=== PATIENT | female | born 1950 | race Caucasian/White ===

== ENCOUNTER 2024-10-17 13:09 | Inpatient (IN) | payer MEDICARE, MEDICAID, SELFPAY ==
[2024-10-17 13:10] VITALS: BP 112/90; PULSE 106; RESP 16; TEMP 36.8; O2SAT 98
[2024-10-17 13:22] LABS: Absolute Lymphocyte Count 6.19 X10^3/uL (0.83-4.51); Absolute Neutrophil Count 12.1 X10^3/uL (2.0-7.7); Basophil# 0.12 X10^3/uL; Basophil% 0.6 % (0-1); Eosinophil# 0.23 X10^3/uL; Eosinophils% 1.1 % (0-5); Hematocrit 40.9 % (37-47); Lymphocyte # 6.19 X10^3/ul (0.83-4.51); Lymphocyte % 30.7 % (19-41); Mean Corp Hgb Conc 31.8 g/dL (32-36); Mean Corpuscular Volume 91.1 fL (81-99); Mean Platelet Vol. 10.5 fl (6.2-12.0); Monocyte# 1.46 X10^3/uL; Monocyte% 7.2 % (0-10); NRBC Flagged by Analyzer 0 % (0-5); Neutrophil # 12.11 X10^3/uL (2.7-7.7); POSITIVE DIFFERENTIAL YES; POSITIVE MORPHOLOGY YES; Platelet Count 497 K/mm3 (150-450); RBC Distribution Width CV 14.2 % (11.6-14.6); RBC Distribution Width SD 47.5 fl (35.1-43.9); Red Blood Count 4.49 M/mm3 (4.2-5.4); White Blood Count 20.2 K/mm3 (4.4-11.0)
[2024-10-17 13:24] LABS: Differential Indicated SCAN CRITERIA MET
--- NOTE | 2024-10-17 13:25 | RAD_ITS ---
EXAM: XR Chest, 1 View CLINICAL INDICATION: SOB TECHNIQUE: Frontal view of the chest. COMPARISON: No relevant prior studies available. FINDINGS: LUNGS AND PLEURAL SPACES: Unremarkable. No consolidation. No pneumothorax. HEART: Unremarkable. No cardiomegaly. MEDIASTINUM: Unremarkable. Normal mediastinal contour. BONES/JOINTS: Unremarkable. No acute fracture. RAD/Chest 1 View (Portable) IMPRESSION: No acute cardiopulmonary process. Reading [facility]
[2024-10-17 13:45] LABS: Reactive Lymphocyte RARE
[2024-10-17 14:01] LABS: Anion Gap 15 (5-15); BUN 20 mg/dL (4-19); Calcium,Total 8.7 mg/dL (7.6-11.0); Carbon Dioxide 19.7 mmol/L (21.0-32.0); Chloride 101 mmol/L (98-108); Creatinine, Serum 1.18 mg/dL (0.70-1.20); EST Glomerular Filtration Rate 48 (>60); Glucose 425 mg/dL (70-99); Sodium Level 135 mmol/L (133-145)
[2024-10-17 15:05] VITALS: BP 117/84; PULSE 91; RESP 18; O2SAT 98
--- NOTE | 2024-10-17 15:18 | EX.ED.DYSGE1 ---
HPI History of Present Illness Chief Complaint: Weakness Informant: patient and family Narrative Narrative: Presents increasing weakness dyspnea today. Diagnosed with influenza 2 weeks ago at [place] ED. 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 Takes daily chemo pills. Followed by Dr. Renny Beard [facility]. States residual cough. No fever or chills. No vomiting diarrhea. Increased urine frequency due to drinking a lot of fluids. No dysuria. No chest or abdominal pain. Edition states had a subsequent PE from her surgery had a right eye stroke along with TN from her chemo pills. She is on Eliquis. She has been compliant. She ambulates with a walker at baseline. She is brought in by EMS when sister called. [facility] Medical History CAD (coronary artery disease) History of TN (myocardial infarction) Pulmonary embolus Hyperlipidemia GERD (gastroesophageal reflux disease) Hypothyroidism Depression Diabetes mellitus, type 2 Hypertension Stomach cancer Home Medications ?Medication ?Instructions ?Recorded ?Last Taken ?Type amlodipine 10 mg tablet 10 mg PO DAILY 10/17/24 Unknown History apixaban 5 mg tablet (Eliquis) 5 mg PO BID 10/17/24 Unknown History aspirin 81 mg chewable tablet 1 tab PO DAILY 10/17/24 Unknown History atorvastatin 20 mg tablet 20 mg PO DAILY 10/17/24 Unknown History dulaglutide 0.75 mg/0.5 mL 0.75 mg subcut .tue 10/17/24 Unknown History subcutaneous pen injector (Trulicity) famotidine 40 mg tablet 40 mg PO QHS 10/17/24 Unknown History ferrous sulfate 325 mg (65 mg 325 mg PO DAILY 10/17/24 Unknown History iron) tablet (FeroSul) insulin aspart See Rx Instructions subcut .COMPLEX 10/17/24 Unknown History (niacinamide)(U-100) 100 unit/mL(3 mL) subcutaneous pen (Fiasp FlexTouch U-100 Insulin) insulin glargine 100 unit/mL (3 30 unit subcut QHS 10/17/24 Unknown History mL) subcutaneous pen (Basaglar KwikPen U-100 Insulin) isosorbide mononitrate 30 mg 30 mg PO DAILY 10/17/24 Unknown History tablet,extended release 24 hr levothyroxine 100 mcg tablet 100 mcg PO DAILY 10/17/24 Unknown History metformin 1,000 mg tablet 1,000 mg PO BID 10/17/24 Unknown History metoprolol succinate 200 mg 200 mg PO DAILY 10/17/24 Unknown History tablet,extended release 24 hr montelukast 10 mg tablet 10 mg PO DAILY 10/17/24 Unknown History sacubitril 24 mg-valsartan 26 mg 1 tab PO BID 10/17/24 Unknown History tablet (Entresto) semaglutide 0.25 mg or 0.5 mg (2 0.5 mg subcut QWEEK 10/17/24 Unknown History mg/3 mL) subcutaneous pen injector (Ozempic) sertraline 100 mg tablet mg DAILY 10/17/24 Unknown History Allergy/AdvReac Type Severity Reaction Status Date / Time No Known Allergies Allergy Verified 10/17/24 13:13 Social History Smoking Status: Never smoker ROS ROS ED Constitutional Constitutional ED: Denies chills, fever(s) or sweats ENT ENT ED: Denies sore throat Cardiovascular Cardiovascular: Denies chest pain, leg edema, palpitations or racing heartbeat Respiratory/Chest Respiratory/Chest: Reports cough and dyspnea; Denies dyspnea on exertion Gastrointestinal Gastrointestinal: Denies abdominal pain, diarrhea, nausea or vomiting Genitourinary Genitourinary ED: Reports urinary frequency; Denies dysuria or hematuria Musculoskeletal Musculoskeletal: Denies back pain, extremity pain or neck pain Integumentary Denies rash or wounds Neurologic Neurologic: Reports weakness; Denies headache(s) or paresthesias EXAM Physical Exam Const Vital Signs: 10/17/24 13:10 10/17/24 15:05 10/17/24 15:11 Temperature 98.2 F Temperature Source Temporal Pulse Rate 106 H 91 Respiratory Rate 16 18 Respiratory Effort Normal Non-Labored Respiratory Pattern Normal Blood Pressure 112/90 H 117/84 H Blood Pressure Mean 97 94 Pulse Ox 98 98 Oxygen Delivery Method Room Air 10/17/24 17:00 10/17/24 19:00 Temperature Temperature Source Pulse Rate 84 98 Respiratory Rate 27 H 16 Respiratory Effort Respiratory Pattern Blood Pressure 127/100 H 117/64 Blood Pressure Mean 109 74 Pulse Ox 98 97 Oxygen Delivery Method Positive well nourished and well developed General Appearance ED: well developed and NAD HEENT HEENT Narrative: Mild dry mucosal membranes normocephalic and atraumatic Eyes General Eye ED: Yes normal appearance of both eyes Neck full ROM Chest Wall Chest: Negative for tenderness Resp normal respiratory effort and normal air movement Effort and Inspection: symmetric chest movement; Negative for respiratory distress Cardio regular rate, regular rhythm and no murmurs Peripheral Pulses: pulses 2+ throughout GI normal to inspection, nondistended, normoactive bowel sounds and non-tender Palpation: Negative for guarding or rebound tenderness present Extremity normal to inspection General Extremety ED: Negative for edema or tenderness General Extremity: Negative for edema Neuro oriented x3 and no sensory deficits noted Sensorium / Orientation: awake and alert Skin no rashes or lesions noted and no wounds MDM MDM MDM Narrative Medical decision making narrative: interventions / MDM: Differential diagnosis: Weakness, UTI, elevated troponin, abnormal EKG Diagnosis considered but do not suspect: Pulmonary embolus however chronic anticoagulation and compliant. My EKG interpretation: EKG sinus rate of 74, no ST changes. There is T wave inversions anterior lateral leads with no old for comparison. Imaging independently reviewed and interpreted by myself: 1 view chest x-ray: No acute process. Also read by radiology. External documents reviewed: N/A Test considered but not ordered:N/A ED course: Afebrile vital signs stable. Pulse ox 90 on room air. No rest or distress. Protocol chest x-ray labs were obtained. Labs had a white count of 20 hemoglobin 13 creatinine 1.18. BUN 20.Chest x-ray reviewed myself read by radiology no acute process. Patient was slight dry mucosal membranes. Normal saline 1 L fluids ordered will check urine with her urine frequency. Will reevaluate. 1605: EKG with T wave inversions lateral leads. No direct chest pains however reports weakness. Due to presuming new T wave inversions will add troponin. From her history did have a reported TN from her cancer medications. With Her glucose was 425 her gap was 15 in the normal range. She was receiving fluids. I will give her 10 units of insulin. She did not take any of her insulin at home. Admits to history of diabetes. 1809: Initial troponin was 19, repeat at 2 hours 42. No current chest pains. Urine with signs infection she has urine frequency. Culture sent. She is covered with IV Rocephin. Ordered for aspirin for cardioprotection. She is due for her nighttime Eliquis this was ordered. With elevated troponin likely type II strain with her UTI and recent influenza. I will speak with hospitalist for admission. 1830: I did speak with cardio Dr. Villalobos, agrees with current plan at this time. Recommends echo in the morning. Discussed with hospitalist Dr. Delilah Gibson for admission. Re-evaluation: stable Disposition discussed with patient/family/significant other: Patient and family Case discussed with consulting clinician: Hospitalist, cardiology This note was generated with [employer] dictation software. It may contain incorrect words, spelling, and punctuation that were not noted in checking the note before signing. Lab Data Attestation: I reviewed the patient's lab results. Labs: Laboratory Results - last 24 hr 10/17/24 10/17/24 10/17/24 13:16 15:27 16:20 WBC 20.2 H RBC 4.49 Hgb 13.0 Hct 40.9 MCV 91.1 MCH 29.0 MCHC 31.8 L RDW Std Deviation 47.5 H RDW Coeff of Brandyn 14.2 Plt Count 497 H MPV 10.5 Immature Gran % (Auto) 0.400 Neut % (Auto) 60.0 Lymph % (Auto) 30.7 Bibb % (Auto) 7.2 Eos % (Auto) 1.1 Baso % (Auto) 0.6 Absolute Neuts (auto) 12.1 H Absolute Lymphs (auto) 6.19 H Nucleated RBC % 0 Reactive Lymphocytes RARE Sodium 135 Potassium 4.0 Chloride 101 Carbon Dioxide 19.7 L Anion Gap 15 BUN 20 H Creatinine 1.18 Est GFR (MDRD) Non-Af 48 L BUN/Creatinine Ratio 17.0 Glucose 425 H Calcium 8.7 Troponin T High Sens 19 H Troponin T Hi Sens 2 Hr 42 H NT pro BNP II 6211 H Urine Color Yellow Urine Clarity Sl. Cloudy Urine pH 6.0 Ur Specific [place] 1.015 Urine Protein 30 H Urine Glucose (UA) 1000 H Urine Ketones Negative Urine Occult Blood 10 H Urine Nitrite Negative Urine Bilirubin Negative Urine Urobilinogen Normal Ur Leukocyte Esterase 100 H Urine RBC 0-5 SEEN Urine WBC 10-25 SEEN Ur Squamous Epith Cells 10-25 SEEN Urine Bacteria 4+ Hyaline Casts 0-5 SEEN Urine Mucus 0 SEEN Radiography Diagnostic Testing: Clinical Impression(s) from Imaging Studies Chest X-Ray 10/17/24 13:25 IMPRESSION: No acute cardiopulmonary process. Reading [facility] Discharge Plan Dx/Rx/DC Orders Clinical Impression: Acute UTI, Weakness, Elevated troponin, Abnormal EKG Disposition Disposition: Acute Care Hospital [facility] Discharge Date/Time: 10/17/24 19:34
--- NOTE | 2024-10-17 15:21 | EKG12_ITS ---
Test Reason : ARRYTH Blood Pressure : */* mmHG Vent. Rate : 74 BPM Atrial Rate : 74 BPM P-R Int : 172 ms QRS Dur : 88 ms QT Int : 392 ms P-R-T Axes : 60 21 91 degrees QTcB Int : 435 ms Normal sinus rhythm T wave abnormality, consider anterolateral ischemia Abnormal ECG Confirmed by LC AGUIRRE, NIKUNJ ([id number]), food editor BHAVANA DAVENPORT ([id number]) on 10/22/2024 11:00:05 AM Referred By: REYES Confirmed By: NIKUNJ PLATT MD
[2024-10-17 15:36] LABS: Mucous, Urine 0 SEEN /hpf (<or=2+)
[2024-10-17 15:38] LABS: Color, Urine Yellow (Yellow); Glucose, Dipstick 1000 mg/dl (Normal); Ketone-Dipstick Negative (Negative); Leukocyte Esterase-Dipstick 100 /ul (Negative); Nitrite-Dipstick Negative (Negative); Occult Blood-Urine 10 /ul (Negative); Protein-Dipstick 30 mg/dl (Negative); Specific Gravity, Urine 1.015 (1.002-1.030); Urine Bilirubin Dipstick Negative (Negative); Urine Clarity Sl. Cloudy (Clear); Urine Urobilinogen Normal (Normal)
[2024-10-17] MEDS: 0.9% Normal Saline (1000mL) 1,000 ML 999 ML IV (15:44)
[2024-10-17 16:29] LABS: White Blood Cells 10-25 SEEN /hpf (0-5)
[2024-10-17 16:30] LABS: Squamous Epithelial Cells - UA 10-25 SEEN /hpf (5-10)
[2024-10-17 16:32] LABS: Bacteria 4+ /hpf (None Seen); Hyaline Cast 0-5 SEEN /lpf (0-5); Red Blood Cells-Urine 0-5 SEEN /hpf (0-5)
[2024-10-17] MEDS: Insulin Lispro 100 UNIT/ML INSULN.PEN 10 UNIT SC (16:33)
[2024-10-17 17:00] VITALS: BP 127/100; PULSE 84; RESP 27; O2SAT 98
[2024-10-17 17:07] LABS: Troponin T High Sens 2 HR 42 ng/L (<=14)
[2024-10-17] MEDS: Aspirin 81 MG TAB.CHEW 324 MG PO (18:17)
[2024-10-17] MEDS: Ceftriaxone 1 GM/50 ML BAG IV (18:30)
[2024-10-17 18:53] LABS: Pro- Brain NATRIURETIC PEPTIDE 6211 pg/mL (<=900)
[2024-10-17 19:00] VITALS: BP 117/64; PULSE 98; RESP 16; O2SAT 97
--- NOTE | 2024-10-17 19:00 | PCM.HP.STD ---
HPI - General General Date of Admission: 10/17/24 Date of Service: 10/17/24 Chief Complaint: Generalized weakness HPI Narrative SUNITHA HERBERT, is a 74 F who presented to the emergency department [facility] on 10/17/2024 with a chief complaint of weakness. She reports her weakness started about 2 to 3 weeks ago. She was at [place] emergency department a while ago and was diagnosed with influenza A. She has been persistently weak and has had an ongoing non-productive cough. She denies CP, SOB at rest but has mild with exertion sometimes. She denies fever or chills. She has had some urinary frequency and urgency but no dysuria. She is on Eliquis at baseline for history of PE. She does have history of a GIST tumor that was diagnosed 6 years ago and gets treatment ongoing from [facility]. Vital signs on presentation showed a temperature of 98.2, heart rate 106, respiratory rate 16, blood pressure is 112/98 and pulse ox is 98% on room air. CBC shows a leukocytosis white count of 20.2, thrombocytosis with a platelet count of 197,000 but no left shift is present. Chemistry panel is overtly unremarkable other than she has a glucose of 425. EKG was done and showed T wave inversions with no previous EKG for comparison. Given this and her history troponins were cycled with her initial troponin at 19 and her 2-hour troponin at 42. BNP was obtained and found to be 6211. UA is consistent with infection having glucose, proteins, occult blood, leuk esterase, white cells, and 4+ bacteria. Chest x-ray was unremarkable for acute findings The case was discussed with Dr. Villalobos by the emergency department physician and the significance of her troponin elevation is unclear with her not having any cardiac type symptoms overall. He recommended continuing her Eliquis and obtaining echocardiogram and stress test. [facility] Medical History CAD (coronary artery disease) History of IL (myocardial infarction) Pulmonary embolus Hyperlipidemia GERD (gastroesophageal reflux disease) Hypothyroidism Depression Diabetes mellitus, type 2 Hypertension Stomach cancer Home Medications ?Medication ?Instructions ?Recorded ?Last Taken ?Type amlodipine 10 mg tablet 10 mg PO DAILY 10/17/24 Unknown History apixaban 5 mg tablet (Eliquis) 5 mg PO BID 10/17/24 Unknown History aspirin 81 mg chewable tablet 1 tab PO DAILY 10/17/24 Unknown History atorvastatin 20 mg tablet 20 mg PO DAILY 10/17/24 Unknown History dulaglutide 0.75 mg/0.5 mL 0.75 mg subcut .tue 10/17/24 Unknown History subcutaneous pen injector (Trulicity) famotidine 40 mg tablet 40 mg PO QHS 10/17/24 Unknown History ferrous sulfate 325 mg (65 mg 325 mg PO DAILY 10/17/24 Unknown History iron) tablet (FeroSul) insulin aspart See Rx Instructions subcut .COMPLEX 10/17/24 Unknown History (niacinamide)(U-100) 100 unit/mL(3 mL) subcutaneous pen (Fiasp FlexTouch U-100 Insulin) insulin glargine 100 unit/mL (3 30 unit subcut QHS 10/17/24 Unknown History mL) subcutaneous pen (Basaglar KwikPen U-100 Insulin) isosorbide mononitrate 30 mg 30 mg PO DAILY 10/17/24 Unknown History tablet,extended release 24 hr levothyroxine 100 mcg tablet 100 mcg PO DAILY 10/17/24 Unknown History metformin 1,000 mg tablet 1,000 mg PO BID 10/17/24 Unknown History metoprolol succinate 200 mg 200 mg PO DAILY 10/17/24 Unknown History tablet,extended release 24 hr montelukast 10 mg tablet 10 mg PO DAILY 10/17/24 Unknown History sacubitril 24 mg-valsartan 26 mg 1 tab PO BID 10/17/24 Unknown History tablet (Entresto) semaglutide 0.25 mg or 0.5 mg (2 0.5 mg subcut QWEEK 10/17/24 Unknown History mg/3 mL) subcutaneous pen injector (Ozempic) sertraline 100 mg tablet mg DAILY 10/17/24 Unknown History Allergy/AdvReac Type Severity Reaction Status Date / Time No Known Allergies Allergy Verified 10/17/24 13:13 Social History Smoking Status: Never smoker ROS Constitutional Constitutional: Reports fatigue and weakness; Denies anorexia, change in weight, chills, fever(s), malaise, night sweats or other Eyes Eyes: Denies blurry vision, change in eye color, change in vision, discharge from eye(s), double vision, erythema, eye pain, loss of vision or other ENT HEENT: Denies abnormal hearing, dysphagia, ear pain, epistaxis, headache(s), hearing loss, nasal congestion, nasal discharge, post nasal drip, sinus pressure, sore throat or other Cardiovascular Cardiovascular: Denies chest pain, claudication, dyspnea on exertion, edema, lightheadedness, orthopnea, palpitations, paroxysmal nocturnal dyspnea, rapid heart rate, syncope or other Respiratory/Chest Respiratory/Chest: Reports cough and shortness of breath with exertion; Denies dyspnea, excessive phlegm production, hemoptysis, productive cough, shortness of breath at rest, wheezing or other Gastrointestinal Gastrointestinal: Denies abdominal pain, coffee ground emesis, constipation, diarrhea, dyspepsia, hematemesis, hematochezia, loose stools, melena, nausea, vomiting or other Genitourinary Genitourinary: Reports urinary frequency and urinary urgency; Denies burning urination, difficulty urinating, dysuria, hematuria, nocturia, urinary hesitancy, urinary incontinence or other Musculoskeletal Musculoskeletal: Denies arthralgias, back pain, joint pain, joint stiffness, joint swelling, myalgias, neck pain or other Neurologic Neurologic: Denies abnormal gait, abnormal speech, confusion, disequilibrium, dizziness, focal weakness, headache(s), numbness, paresthesias, seizure-like activity, seizures, syncope, tingling, tremor(s) or other Psychiatric Psychiatric: Denies anxiety, depression, homicidal ideation, suicidal ideation or other Endocrine Endocrinology: Denies change in body appearance, cold intolerance, excessive sweating, heat intolerance, polydipsia, polyuria or other Hematologic/Lymphatic Hematologic/Lymphatic: Denies anemia, easy bleeding, easy bruising, lymphadenopathy or other Allergic/Immunologic Allergic/Immunologic: Denies rhinitis, hives, eczemia, asthma or other Vital Signs Vital Signs Vital Signs: 10/17/24 13:10 10/17/24 15:05 10/17/24 15:11 Temperature 98.2 F Temperature Source Temporal Pulse Rate 106 H 91 Respiratory Rate 16 18 Respiratory Effort Normal Non-Labored Respiratory Pattern Normal Blood Pressure 112/90 H 117/84 H Blood Pressure Mean 97 94 Pulse Ox 98 98 Oxygen Delivery Method Room Air 10/17/24 17:00 Temperature Temperature Source Pulse Rate 84 Respiratory Rate 27 H Respiratory Effort Respiratory Pattern Blood Pressure 127/100 H Blood Pressure Mean 109 Pulse Ox 98 Oxygen Delivery Method Physical Exam Const alert, oriented x3, no apparent distress, average body habitus and well nourished; Negative for healthy appearing Constitutional Narrative: Older, white female, sitting up in bed, appears comfortable, nontoxic, at bedside, does appear as if she is not feeling well however General Appearance: cooperative HEENT normocephalic, head/scalp atraumatic, hearing grossly normal bilaterally and moist oral mucous membranes HEENT Narrative: Mallampati 2, no thrush Eyes EOMs intact bilaterally and conjunctivae normal Eyes Narrative: No scleral icterus Neck supple Neck Narrative: Trachea midline, no thyroid enlargement Resp normal respiratory effort, no retractions, no use of accessory muscles and clear to auscultation bilaterally Resp Narrative: Intermittent cough, no tactile fremitus, cough is nonproductive and dry sounding Auscultation: Negative for rales, rhonchi or wheezes Cardio regular rate, regular rhythm, S1 normal heart sound, S2 normal heart sound, no murmurs, no rub, no gallops and no clicks GI normal to inspection, nondistended, normoactive bowel sounds, soft to palpation and non-tender Extremity no clubbing, cyanosis or edema Extremity Narrative: 2+ pedal and radial pulses Neuro oriented x3, moves all extremities and no focal motor deficits Speech: speech normal Psych affect normal Psych Narrative: Extremely pleasant, interacts appropriately Results Lab / Micro Data 10/17/24 13:16 10/17/24 13:16 Labs: Laboratory Results - last 24 hr 10/17/24 13:16: WBC 20.2 H, RBC 4.49, Hgb 13.0, Hct 40.9, MCV 91.1, MCH 29.0, MCHC 31.8 L, RDW Std Deviation 47.5 H, RDW Coeff of Brandyn 14.2, Plt Count 497 H, MPV 10.5, Immature Gran % (Auto) 0.400, Neut % (Auto) 60.0, Lymph % (Auto) 30.7, Harris % (Auto) 7.2, Eos % (Auto) 1.1, Baso % (Auto) 0.6, Absolute Neuts (auto) 12.1 H, Absolute Lymphs (auto) 6.19 H, Nucleated RBC % 0, Reactive Lymphocytes RARE, Sodium 135, Potassium 4.0, Chloride 101, Carbon Dioxide 19.7 L, Anion Gap 15, BUN 20 H, Creatinine 1.18, Est GFR (MDRD) Non-Af 48 L, BUN/Creatinine Ratio 17.0, Glucose 425 H, Calcium 8.7, Troponin T High Sens 19 H, NT pro BNP II 6211 H 10/17/24 15:27: Urine Color Yellow, Urine Clarity Sl. Cloudy, Urine pH 6.0, Ur Specific [place] 1.015, Urine Protein 30 H, Urine Glucose (UA) 1000 H, Urine Ketones Negative, Urine Occult Blood 10 H, Urine Nitrite Negative, Urine Bilirubin Negative, Urine Urobilinogen Normal, Ur Leukocyte Esterase 100 H, Urine RBC 0-5 SEEN, Urine WBC 10-25 SEEN, Ur Squamous Epith Cells 10-25 SEEN, Urine Bacteria 4+, Hyaline Casts 0-5 SEEN, Urine Mucus 0 SEEN 10/17/24 16:20: Troponin T Hi Sens 2 Hr 42 H Imaging Radiology Impression Chest X-Ray 10/17/24 13:25 IMPRESSION: No acute cardiopulmonary process. 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, malignant: (7) Debility: (8) Leukocytosis: (9) Thrombocytosis: (10) Hyperglycemia due to diabetes mellitus: (11) Elevated brain natriuretic peptide (BNP) level: PLAN: Plan Abnormal UA -Consistent with urinary tract infection -Cultures pending -Ceftriaxone 1 g daily Leukocytosis/thrombocytosis -Patient with several nonspecific symptoms -Add on blood cultures -Urine cultures pending already -Continue ceftriaxone for now as UA looks suspicious for infection -Patient with cough and is post influenza however lung exam is clear, she has had no fever, no sputum production so my suspicion is low for pneumonia Troponin elevation/abnormal EKG -Significance unclear -No baseline EKG for comparison and patient does have previously known CAD -patient without chest pain -Case was discussed with cardiology by the emergency department and they recommended admission with noninvasive imaging and trend -Did not want a heparin drip -Continue home medications -Check lipid panel -Check echocardiogram next-check a.m. stress test if troponins do not serially trend up -Continue to follow Hyperglycemia with history of DM-2 -Patient states she has not taken her medications today so this is likely contributing -Also concerned that acute infection is contributing -Will restart home regimen -SSI as ordered -Cardiac/carb controlled diet Cough -Antitussives available -Cough is nonproductive and chest x-ray is unremarkable -Was recently diagnosed with influenza A so is recovering for this and I suspect this is postinfectious cough Elevated BNP -Patient without any hypoxemia or shortness of breath -no swelling -Will give Lasix x 1 dose -Echocardiogram as noted above Generalized weakness/debility -Patient ambulates with a walker -A bit weaker lately -PT/OT consultation -Case management/social work consultation for assistance with discharge planning History of PE -Continue home apixaban DM-2 -Hold home Trulicity -Hold home oral agents -Continue home insulin -SSI as ordered -Cardiac/carb controlled diet CAD/essential HTN/hyperlipidemia/history of stroke -Continue aspirin -Continue atorvastatin -Continue isosorbide mononitrate -Continue metoprolol -Continue Entresto -Request records -Stroke affected vision in right eye GIST tumor -Diagnosed 6 years ago with partial gastric and splenic resection -Currently on oral chemo -Follows with Dr. Renyn Beard--> [facility] Main campus -Ongoing outpatient follow-up as previously instructed Seasonal allergies -Continue home Singulair Hypothyroidism -Continue levothyroxine GERD -Continue home famotidine DVT prophylaxis -continue home Eliquis CODE STATUS -Full code per discussion with patient has been on admission Charges/Coding Visit Charges Inpatient E&M: 51092 Init Hosp L2
[2024-10-17 19:29] VITALS: BP 117/64; PULSE 90; RESP 18; TEMP 36.8; O2SAT 97
[2024-10-17] MEDS: APIXABAN 5 MG TABLET PO ×2 (19:31→21:04)
--- NOTE | 2024-10-17 20:04 | ECHOCS_ITS ---
Reason For Study Reason For Study: Dyspnea/SOB Procedure This was a 2D Doppler, Color Flow transthoracic echocardiogram. The study was technically difficult. Contrast injection was performed. Best images taken with patient supine. Exam performed in department. Left Ventricle Normal LV size. The estimated ejection fraction is 35-40 %. Gallina : Akinetic. Right Ventricle Normal RV size. Normal systolic function. Atria The left and right atria are normal. No doppler evidence for ASD. Mitral Valve There is no mitral valve stenosis. No mitral valve insufficiency. Tricuspid Valve There is no tricuspid stenosis. Trivial tricuspid valve insufficiency. Unable to estimate RV systolic pressure due to insufficient tricuspid regurgitant envelope. Aortic Valve Trisinus/trileaflet aortic valve. There is no aortic stenosis. No aortic valve insufficiency. Pulmonic Valve There is no pulmonic valvular stenosis. No pulmonic valve insufficiency. Great Vessels Normal sized aortic root. Pericardium/Pleural No pericardial effusion. Medication Diluted definity 2ml given slow IV push to enhance endocardial definition. MMode/2D Measurements & Calculations LVIDd: 3.6 cm IVSd: 1.9 cm Ao root diam: 3.6 cm LVIDs: 2.1 cm LVPWd: 1.3 cm RVDd: 3.1 cm FS: 42.7 % LAV(MOD-bp): 32.5 ml LVAd ap4: 34.7 cm2 SV(MOD-sp4): 41.6 ml LAV(MOD-bp) Indexed: 17.3 ml/m2 LVLd ap4: 8.9 cm SI(MOD-sp4): 22.2 ml/m2 LAV(MOD-sp2): 33.2 ml EDV(MOD-sp4): 105.7 ml LAV(MOD-sp4): 25.8 ml EDV(sp4-el): 114.4 ml LVAs ap4: 25.7 cm2 LVLs ap4: 8.1 cm ESV(MOD-sp4): 64.1 ml ESV(sp4-el): 68.6 ml EF(MOD-sp4): 39.3 % EF(sp4-el): 40.0 % SV(sp4-el): 45.8 ml LA A4 area: 13.9 cm2 LA dimension(2D): 2.7 cm RA A4 area: 8.9 cm2 TAPSE: 1.4 cm Time Measurements MV dec time: 0.12 sec Doppler Measurements & Calculations MV E max joseph: 46.1 cm/sec Lat Peak E' Joseph: 3.9 cm/sec Med Peak E' Joseph: 3.5 cm/sec MV A max joseph: 116.3 cm/sec E/E' lat: 11.9 E/E' med: 13.0 MV E/A: 0.40 MV V2 max: 138.8 cm/sec MV P1/2t max joseph: 77.1 cm/sec Ao V2 max: 126.0 cm/sec MV max P.7 mmHg MV P1/2t: 51.5 msec Ao max P.4 mmHg MV V2 mean: 80.2 cm/sec MV dec slope: 438.2 cm/sec2 Ao V2 mean: 93.6 cm/sec MV mean P.1 mmHg MVA(P1/2t): 4.3 cm2 Ao mean P.0 mmHg MV V2 VTI: 19.5 cm Ao V2 VTI: 24.2 cm AV (velocity ratio): 0.91 LV V1 max: 125.9 cm/sec PA V2 max: 121.8 cm/sec TR max joseph: 237.1 cm/sec LV V1 max P.4 mmHg TR max P.5 mmHg LV V1 mean P.3 mmHg LV V1 mean: 83.4 cm/sec LV V1 VTI: 22.0 cm ECHO/Echo Complete W/ Contrast Interpretation Summary The estimated ejection fraction is 35-40 %. Gallina : Akinetic. Ordering Physician: Do Gibson Performed By: Hayes Blanton RCS
[2024-10-17 20:09] VITALS: BMI 26.3
[2024-10-17 20:15] VITALS: BP 92/63; PULSE 72; RESP 16; TEMP 36.6; O2SAT 99
--- NOTE | 2024-10-17 20:54 | EKG12_ITS ---
Test Reason : STRESS NIKOLE Blood Pressure : */* mmHG Vent. Rate : 82 BPM Atrial Rate : 82 BPM P-R Int : 170 ms QRS Dur : 88 ms QT Int : 354 ms P-R-T Axes : 72 39 90 degrees QTcB Int : 413 ms Sinus rhythm with occasional Premature ventricular complexes Nonspecific T wave abnormality Abnormal ECG When compared with ECG of 17-Oct-2024 21:28, MANUAL COMPARISON REQUIRED DATA IS UNCONFIRMED Confirmed by LC AGUIRRE, NIKUNJ ([id number]), graphics editor BHAVANA DAVENPORT ([id number]) on 10/22/2024 11:38:39 AM Referred By: SHELLEY Confirmed By: NIKUNJ PLATT MD
[2024-10-17] MEDS: Furosemide 40 MG/4 ML Vial IV (21:03)
[2024-10-17] MEDS: Famotidine 20 MG Tablet 40 MG PO (21:04)
[2024-10-17] MEDS: SACUBITRIL/VALSARTAN 24/26 MG TABLET 1 EACH PO (21:04)
[2024-10-17] MEDS: Atorvastatin Calcium 20 MG Tablet PO (21:04)
[2024-10-17 22:17] LABS: Troponin T High Sens 4 HR 58 ng/L (<=14)
[2024-10-17 23:15] LABS: Bedside Glucose 71 mg/dL (74-106)
[2024-10-18 02:15] VITALS: BP 121/59; PULSE 79; RESP 16; TEMP 36.5; O2SAT 100
[2024-10-18 05:19] LABS: Absolute Lymphocyte Count 3.78 X10^3/uL (0.83-4.51); Basophil# 0.14 X10^3/uL; Basophil% 0.9 % (0-1); Eosinophil# 0.43 X10^3/uL; Eosinophils% 2.9 % (0-5); Hematocrit 43.4 % (37-47); Hemoglobin 13.9 g/dL (12.0-15.0); Lymphocyte # 3.78 X10^3/ul (0.83-4.51); Lymphocyte % 25.2 % (19-41); Mean Corpuscular Hgb 28.7 pg (27.0-32.0); Mean Corpuscular Volume 89.7 fL (81-99); Mean Platelet Vol. 10.7 fl (6.2-12.0); Monocyte# 1.53 X10^3/uL; Monocyte% 10.2 % (0-10); NRBC Flagged by Analyzer 0 % (0-5); Neutrophil # 9.04 X10^3/uL (2.7-7.7); Neutrophil % 60.4 % (47-70); POSITIVE DIFFERENTIAL YES; Platelet Count 508 K/mm3 (150-450); RBC Distribution Width CV 14.3 % (11.6-14.6); RBC Distribution Width SD 46.4 fl (35.1-43.9); Red Blood Count 4.84 M/mm3 (4.2-5.4)
[2024-10-18 05:22] LABS: Differential Indicated SCAN CRITERIA MET
--- NOTE | 2024-10-18 05:55 | EKG12_ITS ---
Test Reason : ADM EKG Blood Pressure : */* mmHG Vent. Rate : 78 BPM Atrial Rate : 78 BPM P-R Int : 176 ms QRS Dur : 84 ms QT Int : 368 ms P-R-T Axes : 61 31 90 degrees QTcB Int : 419 ms Normal sinus rhythm Nonspecific T wave abnormality Abnormal ECG When compared with ECG of 17-Oct-2024 15:47, MANUAL COMPARISON REQUIRED DATA IS UNCONFIRMED Confirmed by LC AGUIRRE, NIKUNJ ([id number]), business editor BHAVANA DAVENPORT ([id number]) on 10/22/2024 11:40:52 AM Referred By: SHELLEY Confirmed By: NIKUNJ PLATT MD
[2024-10-18] MEDS: Insulin Lispro 100 UNIT/ML INSULN.PEN SC (05:57)
[2024-10-18 05:59] LABS: ALB/GLOB Ratio 1.1 RATIO (0.9-2.4); AST(SGOT) 17 U/L (<=31); Alanine Aminotransfer ALT/SGPT 9 U/L (<=34); Albumin, Serum 3.4 g/dL (3.4-4.8); Alkaline Phosphatase 122 U/L (35-104); Anion Gap 15 (5-15); BUN 15 mg/dL (4-19); BUN/Creat Ratio 16.4 RATIO (10-20); Calcium,Total 8.9 mg/dL (7.6-11.0); Carbon Dioxide 23.6 mmol/L (21.0-32.0); Chloride 104 mmol/L (98-108); Creatinine, Serum 0.93 mg/dL (0.70-1.20); EST Glomerular Filtration Rate 64 (>60); Globulin 3.2 g/dL (2.2-4.2); Glucose 157 mg/dL (70-99); Magnesium 1.8 mg/dL (1.5-2.2); Phosphorus 3.1 mg/dL (2.7-4.5); Potassium 3.6 mmol/L (3.3-5.1); Protein, Total 6.5 g/dL (5.9-8.4); Sodium Level 143 mmol/L (133-145); Total Bilirubin 0.39 mg/dL (0.00-1.30)
[2024-10-18 06:00] VITALS: BP 104/66; PULSE 75; RESP 16; TEMP 36.4; O2SAT 96
[2024-10-18 06:31] LABS: Differential Comment SCANNED; Pathologist Review May foll; Platelet Estimate MOD INC (ADEQ); Red Cell Morphology NORM C+C NORMAL (NORM C&C)
[2024-10-18 06:36] LABS: Bedside Glucose 175 mg/dL (74-106)
[2024-10-18 06:42] LABS: Cholesterol 116 mg/dL (<=200); High Density Lipoprotein 46 mg/dL; Low Density Lipoprotein Calc. 44 mg/dL; Triglycerides 129 mg/dL; Very Low Density Lipoprotein 26 mg/dL (5-40); cholesterol:hdl ratio screen 2.52
[2024-10-18 07:49] VITALS: O2SAT 95
[2024-10-18 10:22] VITALS: BP 99/64; PULSE 95; RESP 18; TEMP 36.3; O2SAT 99
[2024-10-18] MEDS: Aspirin 81 MG TAB.CHEW PO (10:44)
[2024-10-18 11:11] LABS: Bedside Glucose 138 mg/dL (74-106)
--- NOTE | 2024-10-18 11:47 | STRESSREP_ITS ---
Stress Test Report Date: [10/18/2024] Procedure: Pharmacologic stress nuclear imaging study Indications: Elevated troponin Consent: Per the patient Procedure: The patient underwent pharmacologic (Regadenoson) evaluation with a peak heart rate of 122 beats per minute (83%predicted maximal heart rate) and a peak blood pressure of 120/72 mmHg. The baseline ECG demonstrated normal sinus rhythm, possible old anterior [place], nonspecific ST-T changes. EKG during lexiscan infusion revealed no significant ischemic changes. EKG post infusion revealed no significant ischemic changes [There were no cardiac dysrhythmias pretest, during pharmacologic infusion, or recovery]. [There was no complaint of chest discomfort during pharmacologic infusion or re covery]. The examination was discontinued secondary to completion of protocol. Impression: 1. Lexiscan stress test test is negative for Lexiscan infusion induced EKG changes of ischemia. 2. Lexiscan stress test test is negative for Lexiscan infusion induced chest pain. 3. Results of the nuclear portion of the test is as below Myocardial perfusion imaging study: Technique: The patient was injected with 11.2 millicuries of technetium 99m Cardiolite and subsequently rest SPECT Cardiolite nuclear imaging was obtained in the horizontal long, vertical long, and short axis views. The patient underwent pharmacologic [Regadenoson 0.4mg] evaluation. Please see above for details. The patient was injected with [] millicuries of technetium 99m Cardiolite and subsequently stress SPECT Cardiolite nuclear imaging was obtained in the horizontal long, vertical long, and short axis views. A gated Cardiolite study at peak stress was obtained. Interpretation: Rest and stress SPECT Cardiolite nuclear imaging status post realignment, normalization, and attenuation correction demonstrate absent radioisotope uptake in the apex on both the rest and stress images. There is no significant reversibility suggestive of significant ischemia. Unable to estimate EF accurately as the apex is not well-visualized and akinetic on echo. Impression: 1. There is no evidence of significant ischemia. Possible prior apical myocardial infarction. 2. Estimated ejection fraction cannot be assessed. Please refer to the echo done today for EF assessment This note was generated with [employer] software. It may contain incorrect words, spelling, and punctuation that were not noted in checking the note before signing.
--- NOTE | 2024-10-18 12:36 | DCINST_ITS ---
Discharge Instructions Diet Discharge Diet: Low fat / Low cholesterol and Carb Control Diet DC O2, CPAP, BIPAP needs Home O2 Discharge instructions: No Dressing / Incision Discharge Activity: Return to Normal Activity Dressing / Incision Call your doctor if you observe: Fever of 101 or Higher, Shortness of breath, Dizziness, Fainting spells, Swelling in the ankles, Chest pain and Increased palpitations (irregular heartbeat) Follow Up Care Test Results: Test results from this visit will be discussed in further detail at your follow- up appointment, if applicable. Discharge Plan Admission Admit Date/Time: 10/17/24 19:07 Attending Provider: Dave Mondragon Primary Care Provider: rBittany Chapman Consulting Providers: Do Gibson Discharge Orders/Prescriptions Prescriptions: New cefdinir 300 mg capsule 300 mg PO BID 4 Days Qty: 8 0RF Continued atorvastatin 20 mg tablet 20 mg PO DAILY amlodipine 10 mg tablet 10 mg PO DAILY aspirin 81 mg tablet,chewable 1 tab PO DAILY Eliquis 5 mg tablet 5 mg PO BID insulin glargine [Basaglar KwikPen U-100 Insulin] 100 unit/mL (3 mL) insulin pen 30 unit subcut QHS Trulicity 0.75 mg/0.5 mL pen injector 0.75 mg subcut .tue Fiasp FlexTouch U-100 Insulin 100 unit/mL (3 mL) insulin pen See Rx Instructions SUBCUT .COMPLEX Patient Comments: BEFORE MEALS AND BEDTIME INJECT 2 UNITS IF 151-200, 4 UNITS IF 201-250, 6 UNITS IF 251-300, 8 UNITS IF 301-350, 10 UNITS IF 351-400. CALL MD IF GREATER THAN 400 OR 2 CONSECUTIVE VALUES ARE GREATER IN PREVIOUS 24 HOURS Rx Instructions: subcutaneously; BEFORE MEALS AND BEDTIME INJECT 2 UNITS IF 151-200, 4 UNITS IF 201-250, 6 UNITS IF 251-300, 8 UNITS IF 301-350, 10 UNITS IF 351-400. CALL MD IF GREATER THAN 400 OR 2 CONSECUTIVE VALUES ARE GREATER IN PREVIOUS 24 HOURS metformin 1,000 mg tablet 1,000 mg PO BID famotidine 40 mg tablet 40 mg PO QHS ferrous sulfate [FeroSul] 325 mg (65 mg iron) tablet 325 mg PO DAILY metoprolol succinate 200 mg tablet extended release 24 hr 200 mg PO DAILY isosorbide mononitrate 30 mg tablet extended release 24 hr 30 mg PO DAILY levothyroxine 100 mcg tablet 100 mcg PO DAILY montelukast 10 mg tablet 10 mg PO DAILY sertraline 100 mg tablet DAILY sacubitril-valsartan [Entresto] 24-26 mg tablet 1 tab PO BID Ozempic 0.25 mg or 0.5 mg (2 mg/3 mL) pen injector 0.5 mg subcut QWEEK Referrals / Follow Up: Brittany Chapman MD [Primary Care Provider] - Within 1 Week Disposition Disposition (needs filled in before D/C Order can be placed): Home, Self Care
[2024-10-18] MEDS: Ferrous Sulfate 325 MG Tablet PO (12:55)
[2024-10-18] MEDS: APIXABAN 5 MG TABLET PO (12:55)
[2024-10-18] MEDS: guaiFENesin 10 ML UDC (200MG/10ML) 20 ML PO (13:03)
[2024-10-18] MEDS: Ceftriaxone 1 GM/50 ML BAG IV (13:04)
--- NOTE | 2024-10-18 13:15 | CASEMGMT ---
RN ONEAL PAINT LINE OPERATOR ONEAL?to room to meet with patient for initial transition planning/care coordination assessment. RN ONEAL?introduced self and role at [facility]. Pt voices understanding and consents to assessment?at this time. Pt resting in bed in no distress at this time. 2 sisters @ bedside and pt agreeable to them being present during assessment. Pt is A/O at this time and answers all questions appropriately. Care providers, pharmacy, and demographics verified/updated at this time. Strata:?2 PCP: Dr Chapman. Pt aware she is to f/u with her in a week. Specialists: Pt sees a forensic computer examiner, oncologist, and neurologist all @ [facility]. She does not remember there names. Preferred Pharmacy: [facility]. Pt is aware Rx has been sent there today. She states she is able to pick this up today. Insurance: [facility] Prescription Benefit: yes LNOK: son, Marlon. Ex-, Martin Living Arrangements: Lives w/ex-, Martin, in one-story nursing home park w/4-5 steps to enter and states she does okay with the steps. She states she is independent w/ADL's and IADL's. Transportation:?Pt states she does not drive. Her ex- provides transportation. DME: States has the following DME: functioning glucometer w/supplies, shower chair, pulse ox, rollator, BP machine, pulse ox. She would like info on medical alert, given at this time. Pt states no need for further DME at this time. HHC/SNF: Pt has been to [facility] in the past, about 5-6 yrs ago. No hx of HHC. She has went to [facility] for OP therapy. Pt declines wanting HHC or OP therapy. She states the weakness she was having on admission has resolved and she is back to her baseline. 6 cl: 23. Pt wishes to return home and states has no concerns with going home. She is aware a discharge order is in and states no concerns w/discharging home today. Her ex- will take her home. PLAN: Home Rishabh HERNANDEZ RN, CM
--- NOTE | 2024-10-18 15:02 | DS.PCM_ITS ---
Providers Date of Admission: 10/17/24 Primary Care Physician: Dr. 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, malignant: Status: Acute Code(s): C49.A3 - Gastrointestinal stromal tumor of small intestine (7) Debility: Status: Acute Code(s): R53.81 - Other malaise (8) Leukocytosis: Status: Acute Code(s): D72.829 - Elevated white blood cell count, unspecified (9) Thrombocytosis: Status: Acute Code(s): D75.839 - Thrombocytosis, unspecified (10) Hyperglycemia due to diabetes mellitus: Status: Acute Code(s): E11.65 - Type 2 diabetes mellitus with hyperglycemia (11) Elevated brain natriuretic peptide (BNP) level: Status: Acute Code(s): R79.89 - Other specified abnormal findings of blood chemistry Medications at Discharge Home Medications amlodipine 10 mg tablet 10 mg PO DAILY 10/17/24 apixaban 5 mg tablet (Eliquis) 5 mg PO BID 10/17/24 aspirin 81 mg chewable tablet 1 tab PO DAILY 10/17/24 atorvastatin 20 mg tablet 20 mg PO DAILY 10/17/24 dulaglutide 0.75 mg/0.5 mL subcutaneous pen injector (Trulicity) 0.75 mg subcut .tue 10/17/24 famotidine 40 mg tablet 40 mg PO QHS 10/17/24 ferrous sulfate 325 mg (65 mg iron) tablet (FeroSul) 325 mg PO DAILY 10/17/24 insulin aspart (niacinamide)(U-100) 100 unit/mL(3 mL) subcutaneous pen (Fiasp FlexTouch U-100 Insulin) See Rx Instructions subcut .COMPLEX 10/17/24 insulin glargine 100 unit/mL (3 mL) subcutaneous pen (Basaglar KwikPen U-100 Insulin) 30 unit subcut QHS 10/17/24 isosorbide mononitrate 30 mg tablet,extended release 24 hr 30 mg PO DAILY 10/17/24 levothyroxine 100 mcg tablet 100 mcg PO DAILY 10/17/24 metformin 1,000 mg tablet 1,000 mg PO BID 10/17/24 metoprolol succinate 200 mg tablet,extended release 24 hr 200 mg PO DAILY 10/17/24 montelukast 10 mg tablet 10 mg PO DAILY 10/17/24 sacubitril 24 mg-valsartan 26 mg tablet (Entresto) 1 tab PO BID 10/17/24 semaglutide 0.25 mg or 0.5 mg (2 mg/3 mL) subcutaneous pen injector (Ozempic) 0.5 mg subcut QWEEK 10/17/24 sertraline 100 mg tablet mg DAILY 10/17/24 cefdinir 300 mg capsule 300 mg PO BID 4 days #8 caps 10/18/24 Hospital Course Operations None Procedures 2-D Echocardiogram and Stress test Summary of Care Provided Minutes Spent on Discharge: 39 Hospital Course: Per HPI: SUNITHA HERBERT, is a 74 F who presented to the emergency department [facility] on 10/17/2024 with a chief complaint of weakness. She reports her weakness started about 2 to 3 weeks ago. She was at [place] emergency department a while ago and was diagnosed with influenza A. She has been persistently weak and has had an ongoing non-productive cough. She denies CP, SOB at rest but has mild with exertion sometimes. She denies fever or chills. She has had some urinary frequency and urgency but no dysuria. She is on Eliquis at baseline for history of PE. She does have history of a GIST tumor that was diagnosed 6 years ago and gets treatment ongoing from [facility]. Vital signs on presentation showed a temperature of 98.2, heart rate 106, respiratory rate 16, blood pressure is 112/98 and pulse ox is 98% on room air. CBC shows a leukocytosis white count of 20.2, thrombocytosis with a platelet count of 197,000 but no left shift is present. Chemistry panel is overtly unremarkable other than she has a glucose of 425. EKG was done and showed T wave inversions with no previous EKG for comparison. Given this and her history troponins were cycled with her initial troponin at 19 and her 2-hour troponin at 42. BNP was obtained and found to be 6211. UA is consistent with infection having glucose, proteins, occult blood, leuk esterase, white cells, and 4+ bacteria. Chest x-ray was unremarkable for acute findings The case was discussed with Dr. Villalobos by the emergency department physician and the significance of her troponin elevation is unclear with her not having any cardiac type symptoms overall. He recommended continuing her Eliquis and obtaining echocardiogram and stress test. Hospital Course: 1. Acute cystitis/troponin elevation of no significance?74-year-old female presented to the hospital with weakness. During that workup they obtained troponin which was slightly elevated but had no significance to her care. She had no chest pain, no shortness of breath or lightheadedness. She did also recently get diagnosed with influenza in the last 2 weeks. Both of these likely increased her physiologic demand but echo and stress test were unchanged from her baseline. She states that she has had a Takotsubo's cardiomyopathy in the past and it looks like she has fixed lesions with apical akinesis on her echocardiogram with an EF of 35 to 40%. When she presented to the hospital she had a leukocytosis of 20,000 which is down to 15,000 with Rocephin. She as she could possibly be discharged home today, and she expressed understanding of the risks and benefits of going home and would still like to go home today. We discussed the fact that her cultures are not back yet however she is improving, therefore we will continue with cefdinir 300 mg p.o. twice daily for 4 more days and if cultures do result with sensitivities I discouraged use of cefdinir, will send new antibiotics to her pharmacy and will notify her. Given her continued reduced EF would recommend follow-up with cardiology as an outpatient 2. Type 2 diabetes, history of PE, essential hypertension, hyperlipidemia, history of stroke, coronary artery disease, history of GIST tumor, hypothyroidism, GERD are all chronic medical conditions which complicate her care. Her home medications were continued with appropriate Physical Exam Narrative General: Alert, Oriented x3, Cooperative, No apparent distress HEENT: Atraumatic, PERRLA, EOMI, Normocephalic Oral: Moist Mucosa Neck: Supple, No JVD Lungs: Diminished, Normal air movement, No rhonchi, No wheeze, No rales Cardiovascular: Regular rate, Regular Rhythm, Normal S1, Normal S2, No murmurs Abdomen: Soft, Non Tender, Non-Distended, No Hepato-splenomegaly Extremities: No edema, Capillary Refill Less than 3 Seconds Skin: No rashes, No breakdown Musculoskeletal: No Tenderness to Palpation of Joints or Extremities Neurological: No focal neurological deficits, Motor Exam 5/5 strength throughout, Sensory exam intact to light touch and pain Psych/Mental Status: Normal Affect, Appropriate Weight / BMI Weight Weight: 167 lb 15.876 oz Body Mass Index (BMI) 26.3 ABG / Lab / Microbiology Data 10/18/24 04:50 10/18/24 04:50 Laboratory: Laboratory Results - last 24 hr 10/17/24 13:16: Troponin T High Sens Cancelled, NT pro BNP II 6211 H 10/17/24 15:27: Urine Color Yellow, Urine Clarity Sl. Cloudy, Urine pH 6.0, Ur Specific [place] 1.015, Urine Protein 30 H, Urine Glucose (UA) 1000 H, Urine Ketones Negative, Urine Occult Blood 10 H, Urine Nitrite Negative, Urine Bilirubin Negative, Urine Urobilinogen Normal, Ur Leukocyte Esterase 100 H, Urine RBC 0-5 SEEN, Urine WBC 10-25 SEEN, Ur Squamous Epith Cells 10-25 SEEN, Urine Bacteria 4+, Hyaline Casts 0-5 SEEN, Urine Mucus 0 SEEN 10/17/24 16:20: Troponin T Hi Sens 2 Hr 42 H 10/17/24 20:35: Troponin T Hi Sens 4Hr 58 H* 10/17/24 21:12: POC Glucose 71 L 10/18/24 04:50: WBC 15.0 H, RBC 4.84, Hgb 13.9, Hct 43.4, MCV 89.7, MCH 28.7, MCHC 32.0, RDW Std Deviation 46.4 H, RDW Coeff of Brandyn 14.3, Plt Count 508 H, MPV 10.7, Immature Gran % (Auto) 0.400, Neut % (Auto) 60.4, Lymph % (Auto) 25.2, M gertrudis % (Auto) 10.2 H, Eos % (Auto) 2.9, Baso % (Auto) 0.9, Absolute Neuts (auto) 9.0 H, Absolute Lymphs (auto) 3.78, Nucleated RBC % 0, Differential Comment SCANNED, Diff Path Review May foll, Platelet Estimate MOD INC, RBC Morphology NORM C+C, Sodium 143, Potassium 3.6, Chloride 104, Carbon Dioxide 23.6, Anion Gap 15, BUN 15, Creatinine 0.93, Estim Creat Clear Calc 56.50, Est GFR (MDRD) Non-Af 64, BUN/Creatinine Ratio 16.4, Glucose 157 H, Calcium 8.9, Phosphorus 3.1, Magnesium 1.8, Total Bilirubin 0.39, AST 17, ALT 9, Alkaline Phosphatase 122 H, Total Protein 6.5, Albumin 3.4, Globulin 3.2, Albumin/Globulin Ratio 1.1, Triglycerides 129, Cholesterol 116, LDL Cholesterol, Calc 44, VLDL Cholesterol 26, HDL Cholesterol 46, Cholesterol/HDL Ratio 2.52 10/18/24 05:54: POC Glucose 175 H 10/18/24 10:53: POC Glucose 138 H Radiography Diagnostic Testing: Radiology Impression Echocardiogram 10/17/24 20:04 Interpretation Summary The estimated ejection fraction is 35-40 %. [place] : Akinetic. Ordering Physician: Do Gibson Performed By: Hayes Blanton RCS D/C Instructions Discharge Diet: Low fat / Low cholesterol and Carb Control Diet Call your doctor if you observe: Fever of 101 or Higher, Shortness of breath, Dizziness, Fainting spells, Swelling in the ankles, Chest pain and Increased palpitations (irregular heartbeat) DC O2, CPAP, BIPAP Needs Home O2 Discharge instructions: No Meaningful Use Info Meaningful Use Meaningful Use Diagnoses (Choose all that apply): None applicable Ischemic Stroke Statin Dosing Therapy Reference: STATIN DOSE THERAPY REFERENCE: * Patients > 75 years receive moderate or high dose statin therapy. * Patients 75 years or YOUNGER should receive HIGH intensity statin dose unless contraindicated. You will be required to document reason for non-treatment if statin daily dose does not meet guidelines. HIGH DOSE STATIN THERAPY DAILY Atorvastatin > than or = to 40 mg Rosuvastatin > than or = to 20 mg Amlodipine + Atorvastatin > than or = to 2.5/40 mg Ezetimibe + Simvastatin 10/80 mg Simvastatin 80mg Discharge Plan Admission Admit Date/Time: 10/17/24 19:07 Attending Provider: Dave Mondragon Primary Care Provider: Brittany Chapman Consulting Providers: Do Gibson Discharge Orders/Prescriptions Prescriptions: New cefdinir 300 mg capsule 300 mg PO BID 4 Days Qty: 8 0RF Continued atorvastatin 20 mg tablet 20 mg PO DAILY amlodipine 10 mg tablet 10 mg PO DAILY aspirin 81 mg tablet,chewable 1 tab PO DAILY Eliquis 5 mg tablet 5 mg PO BID insulin glargine [Basaglar KwikPen U-100 Insulin] 100 unit/mL (3 mL) insulin pen 30 unit subcut QHS Trulicity 0.75 mg/0.5 mL pen injector 0.75 mg subcut .tue Fiasp FlexTouch U-100 Insulin 100 unit/mL (3 mL) insulin pen See Rx Instructions SUBCUT .COMPLEX Patient Comments: BEFORE MEALS AND BEDTIME INJECT 2 UNITS IF 151-200, 4 UNITS IF 201-250, 6 UNITS IF 251-300, 8 UNITS IF 301-350, 10 UNITS IF 351-400. CALL MD IF GREATER THAN 400 OR 2 CONSECUTIVE VALUES ARE GREATER IN PREVIOUS 24 HOURS Rx Instructions: subcutaneously; BEFORE MEALS AND BEDTIME INJECT 2 UNITS IF 151-200, 4 UNITS IF 201-250, 6 UNITS IF 251-300, 8 UNITS IF 301-350, 10 UNITS IF 351-400. CALL MD IF GREATER THAN 400 OR 2 CONSECUTIVE VALUES ARE GREATER IN PREVIOUS 24 HOURS metformin 1,000 mg tablet 1,000 mg PO BID famotidine 40 mg tablet 40 mg PO QHS ferrous sulfate [FeroSul] 325 mg (65 mg iron) tablet 325 mg PO DAILY metoprolol succinate 200 mg tablet extended release 24 hr 200 mg PO DAILY isosorbide mononitrate 30 mg tablet extended release 24 hr 30 mg PO DAILY levothyroxine 100 mcg tablet 100 mcg PO DAILY montelukast 10 mg tablet 10 mg PO DAILY sertraline 100 mg tablet DAILY sacubitril-valsartan [Entresto] 24-26 mg tablet 1 tab PO BID Ozempic 0.25 mg or 0.5 mg (2 mg/3 mL) pen injector 0.5 mg subcut QWEEK Referrals / Follow Up: Brittany Chapman MD [Primary Care Provider] - Within 1 Week Disposition Disposition (needs filled in before D/C Order can be placed): Home, Self Care Charges/Coding Visit Charges Inpatient E&M: 51228 Disch Hosp >30min
== END 2024-10-18 13:57 | disposition home or self-care (01) | DRG 690 ==
LOC: ED 18:10 → PCU 20:16
PROVIDERS: Admitting Provider Internal Medicine; Emergency Provider Emergency Medicine; PCP Internal Medicine; Visit Provider Family Medicine
DX: N30.00 Acute cystitis without hematuria (principal); C49.A3 Gastrointestinal stromal tumor of small intestine; E11.65 Type 2 diabetes mellitus with hyperglycemia; E03.9 Hypothyroidism, unspecified; D72.829 Elevated white blood cell count, unspecified; D75.839 Thrombocytosis, unspecified; I10 Essential (primary) hypertension; K21.9 Gastro-esophageal reflux disease without esophagitis; J30.2 Other seasonal allergic rhinitis; Z79.4 Long term (current) use of insulin; I25.10 Atherosclerotic heart disease of native coronary artery without angina pectoris; E78.5 Hyperlipidemia, unspecified; I25.2 Old myocardial infarction; R53.1 Weakness; R94.31 Abnormal electrocardiogram [ECG] [EKG]; Z79.85 Long-term (current) use of injectable non-insulin antidiabetic drugs; Z79.01 Long term (current) use of anticoagulants; Z79.82 Long term (current) use of aspirin; R79.89 Other specified abnormal findings of blood chemistry; R53.81 Other malaise; Z79.899 Other long term (current) drug therapy; Z79.84 Long term (current) use of oral hypoglycemic drugs; R05.9 Cough, unspecified; Z86.711 Personal history of pulmonary embolism; Z92.21 Personal history of antineoplastic chemotherapy
CPT/HCPCS: 36415; 71045; 78452; 80048; 80053; 80061; 81001; 82962; 83735; 83880; 84100; 84484; 85025; 87040; 87086; 87088; 87186; 93005; 93017; 93306; 94668; 99252; 99285; A9500; Q9957; A4216; C8929; G0463; J1940; J2785